=== PATIENT | male | born 1980 | race Caucasian/White ===

== ENCOUNTER 2024-11-07 17:38 | Inpatient (IN) | payer OTHER, SELFPAY ==
[2024-11-07] VITALS (12 sets, daily range): BP systolic 137–163; BP diastolic 88–112; BMI 26.2; BMI 26.3
--- NOTE | 2024-11-07 12:39 | ED.GENMED ---
History of Present Illness
General
Chief Complaint: Withdrawal Symptoms
Source: patient
Exam Limitations: none
Time Seen by Provider: 11/07/24 12:31
Nursing documentation reviewed up to this point in time: agreed with
History of Present Illness
History of Present Illness:
44 male alcoholic stopped drinking on Thursday evening, was drinking every day is unemployed lives with his and children, no other drugs, not taking his blood pressure meds, has been in rehab before unsure if he wants to go today he feels shaky
and nauseous no history of seizures when he withdrawals denies any black or bloody stools
Past History
Past History
ED Past Medical History: HTN and Other (Ischemic colitis, GI bleed)
ED Past Surgical History: Tonsilectomy
Social History
Tobacco: Former smoker
Alcohol: Daily
Drug: None
Personal:
Living: with family
Employment: Employed
Review of Systems
Review of Systems
All Other Systems: Not applicable
EENT: Reports no symptoms
Respiratory: Reports no symptoms
Cardiac: Reports no symptoms
ABD/GI: Reports nausea; Denies abdominal pain or vomiting
: Reports no symptoms
Musculoskeletal: Reports no symptoms
Neurological: Reports dizzy and weakness
Endocrine: Reports no symptoms
Psychiatric: Reports anxiety; Denies depression or suicidal
Phy Exam
Physical Exam
Physical Exam:
Physical Exam
General: Tremulous 44 male
Neck: Lips are dry
Heart: s1/s2 regular rate and rhythm, no murmur. equal radial pulses.
Lungs: no acute respiratory distress. clear bilaterally
Abdomen: Nontender
Neuro: Tremulous, able to do serial additions
Skin: no rash
Psychiatric: cooperative
Extremities: no edema.
Scores
Withdrawal Assessment of Alcohol
Withdrawal Assessment Completed?: Yes
Nausea and Vomiting: Mild nausea with no vomiting
Tactile Disturbances: Mild itching, pins and needles, burning or numbness
Tremor: Moderate, with patient's arms extended
Auditory Disturbances: Very mild harshness or ability to fighten
Paroxysmal Sweats: No sweat visible
Visual Disturbances: Very mild sensitivity
Anxiety: Moderately anxious, or guarded, so anxiety is inferred
Headache, Fullness in Head: Very mild
Agitation: Moderately fidgety and restless
Orientation and clouding of sensorium: Oriented and can do serial additions
Total CIWA Score: 18
Alcohol Withdrawal Medication Recommendation: Equal to MSAS Score 8-11. Lorazepam 1-2mg IV NOW & re-assess q1hr
Course
Orders/Labs/Results
Orders:
Orders
11/07/24 12:23
Electrocardiogram (*1) Urgent
Reason for Study: Tachycardia
11/07/24 12:24
EKG- Treatment ONCE
11/07/24 12:33
Complete Blood Count/With Diff Urgent
Comprehensive Metabolic Panel Urgent
Magnesium Urgent
Comment: ADD
11/07/24 12:35
Add On- LAB Urgent
Tests Added?: magnesium
11/07/24 12:36
diazePAM [Valium Injection] 10 mg IV NOW STA
11/07/24 13:00
0.9% Sodium Chloride 1000 ml [Nss] 1,000 ml Mvi, Adult [Multivitamin] 10 ml Thiamine Injection 100 mg Magnesium Sulfate 2 grams IV 200 mls/hr
Flush (0.9% Sodium Chloride) [Flush (Nss)] See Dose Instructions IV PER PROTOCOL
11/07/24 13:48
Warm Handoff Consult ONCE
Patient agreeable to Warm Hand off: Yes
11/07/24 16:05
diazePAM [Valium Injection] 10 mg IV NOW STA
Abnormal Lab Results
11/07/24
12:33
RBC 4.16 L 10^6/uL
(4.70-6.10)
MCV 96.6 H fL
(80.0-94.0)
MCH 34.6 H pg
(27.0-31.0)
Absolute Lymphs (auto) 0.8 L 10^3/uL
(1.2-3.4)
Absolute Monos (auto) 0.7 H 10^3/uL
(0.1-0.6)
Immature Gran % 0.6 H %
(0-0.5)
Lymphocytes % 15.4 L %
(20.5-51.1)
Monocytes % 14.4 H %
(1.7-9.3)
Sodium 133 L mmol/L
(135-145)
Chloride 95 L mmol/L
(98-107)
Glucose 125 H mg/dl
(70-99)
Magnesium 1.3 L mg/dl
(1.6-2.3)
Total Bilirubin 1.7 H mg/dl
(0.2-1.3)
AST 94 H U/L
(17-59)
ALT 62 H U/L
(0-50)
Albumin 5.3 H g/dl
(3.5-5.0)
11/07/24 12:33
11/07/24 12:33
Vital Signs
Initial and Last Documented VS:
Initial Vital Signs
Temp Pulse Resp Pulse Ox
99.0 F 130 18 99
11/07/24 12:21 11/07/24 12:21 11/07/24 12:21 11/07/24 12:21
Last Documented Vital Signs
Temp Pulse Resp BP Pulse Ox
99.0 F 105 16 147/100 99
11/07/24 12:21 11/07/24 15:30 11/07/24 15:30 11/07/24 15:00 11/07/24 15:55
MDM/Problems Addressed
Differential Diagnosis Includes:
Alcohol withdrawal impending DTs, electrolyte abnormality
MDM/Problems Addressed:
Alcohol withdrawal
Chronic conditions affecting care: HTN
Acute Exacerbation and/or Progression of Chronic Illness: HTN
*Pulse Oximetry
SaO2: 98
Oxygen Mode of Delivery: Room air
Patient hypoxic: no
*EKG
Interpreted by ED Provider?: Yes
Interpretation: abnormal
Comparison EKG: no comparison EKG present
Heart Rate: 118
Rate: tachycardiac
Rhythm: sinus
Ischemia: non-specific ST changes
*Wicker Worker Interpretation
Rate: tachycardiac
Interpretation: abnormal
Heart Rate: 120
Rhythm: sinus
*Critical Care Note
Total Time (30-74mins, 75-104mins- exclusive of procedures): 31
Update Note
Update Note:
1:45 PM vital signs normalized labs noted thiamine folate magnesium infusing patient appears amenable to talking to warm handoff
345, patient stable normal mental status he is cherry talk to his about rehab
4 PM reviewed with nursing patient shaky tachycardic will redose benzos low threshold to admit
ED Attending Note
-
Portions of this chart may have been created with voice recognition software.� Occasional wrong word or��sound alike� substitutions may have occurred due to the inherent limitations of voice recognition software.
Discharge Plan
Departure
Prescriptions:
No Action
pantoprazole 40 MG tablet,delayed release (DR/EC)
40 mg PO BID Qty: 60 0RF
Referrals:
UNKNOWN - PT DOES,NOT KNOW [Family Provider]
Interventions
Interventions:
*Risk Screen - Suicide Last Done: 11/07/24 12:25
*General Assessment Last Done: 11/07/24 12:25
*Neglect/Abuse Screening Last Done: 11/07/24 12:25
*ED COVID-19 Vaccine History Last Done: 11/07/24 12:25
*ED Influenza Vaccine History Last Done: 11/07/24 12:25
ED- Neurological Assessment Last Done: 11/07/24 12:34
ED-Psychological Assessment Last Done: 11/07/24 12:34
Discharge Date and Time
Print Language: NAURUAN
[2024-11-07] MEDS: VALIUM INJECTION 10 MG IV ×2 (12:41→16:25)
[2024-11-07 12:58] LABS: Hematocrit 40.2 % (39.0-52.0); Hemoglobin 14.4 g/dL (13.0-18.0); Mean Corp Hgb Conc. 35.8 g/dL (33.0-37.0); Mean Corpuscular Volume 96.6 fL (80.0-94.0); Nucleated Red Blood Cells % 0 % (-); Red Cell Dist. Width 13.8 % (11.5-14.5)
[2024-11-07 12:59] LABS: ALT (SGPT) 62 U/L (0-50); AST (SGOT) 94 U/L (17-59); Albumin 5.3 g/dl (3.5-5.0); Alkaline Phosphatase 67 U/L (38-126); Blood Urea Nitrogen 9 mg/dl (9-20); Calcium 10.2 mg/dl (8.4-10.2); Carbon Dioxide 26 mmol/L (22-30); Chloride 95 mmol/L (98-107); Estimated Creatinine Clearance 122 ml/min; Glucose 125 mg/dl (70-99); Magnesium 1.3 mg/dl (1.6-2.3); Potassium 3.8 mmol/L (3.5-5.1); Sodium 133 mmol/L (135-145); Total Protein 7.6 g/dl (6.3-8.2); eGFR > 60.00
[2024-11-07] MEDS: MULTIVITAMIN 1015 GRAMS IV (13:05)
[2024-11-07] MEDS: MULTIVITAMIN 1015 MG IV (13:05)
[2024-11-07] MEDS: MULTIVITAMIN 1015 ML IV (13:05)
[2024-11-07 13:20] LABS: Platelet Count 141 10^3/uL (130-400)
--- NOTE | 2024-11-07 16:09 | HPS.HSE ---
Addendum entered and electronically signed by Sony Copeland MD 11/07/24 17:22:
Seen and examined by me independently in collaboration with the nurse practitioner Ulysses.
Past medical history/social history/medication/allergies reviewed.
Lab data and imaging data reviewed.
44-year-old gentleman with a history of prior alcohol abuse and having had inpatient rehab was sober till about 3 months ago when he went back to alcohol. He is currently drinking 1 bottle of vodka every 2 to 3 days. He abruptly quit on Thursday.
He started to experience tremors, shaking, imbalance and anxiety feeling since Thursday evening. Denies having had seizures.
Denies being confused but has been forgetful the last 3 days. Denies having experiencing any agitation.
No prior history of seizures.
Has been feeling nauseous but no abdominal pain or vomiting. No shortness of breath.
He is currently anxious looking with obvious tremors. No diaphoresis noted. Pulse 101 regular sinus tach on the monitor. Blood pressure 153/90 currently. He did receive Valium in the ER.
He is alert and oriented to day, month and the year. No hallucinations.
Abdomen soft and nontender.
Patient with alcohol use disorder going through withdrawal moderate intensity. No evidence of DTs currently.
Blood pressure elevation could be combination of alcohol withdrawal but also not taking his antihypertensives. Known to have hypertension and was taking 2 medications including lisinopril and Norvasc in the past which he stopped.
Admit to telemetry. Start on alcohol withdrawal protocol with benzodiazepines. Hold on phenobarb for now and added if worsening symptoms.
Start on IV hydration. Start on IV thiamine and folic acid. Replete magnesium for hypomagnesemia.
In the past he was on BuSpar and is not sure who prescribed it and also was taking trazodone. Interested to see a psychiatrist.
Consult case management for rehab placement which he is agreeable and is considering outpatient at the current time.
Original Note:
Family Physician
-
Family Physician: NOT KNOW UNKNOWN - PT DOES
Chief Complaint
-
alcohol withdrawal
History of Present Illness
44 male with PMH for alcohol abuse, ischemic colitis, HTn presented to us with alcohol withdrawal. he drinks vodka daily. his last drink was on Thursday as he was getting prepared for an job interview. today he was confused, very shaky, tremors. he
was off balance.he can't even hold a plastic cup due to tremors.denied AGUILAR, dizzy or syncope.denied fever, chills,chest pain, sob. denied abdominal pain,n,v,d. denied dysuria or hematuria.
Patient received 2 doses of Valium, banana bag in the ER. Admitted for further management
Medical History
Past Medical History
Past Medical History: Reports Other
Additional Past Medical History:
Hypertension, ischemic colitis
Past Surgical History: Reports Other
Additional Past Surgical History:
Adenoidectomy, hiatal hernia clipped, bilateral ear tube
Social History
Tobacco: Former Smoker
Alcohol: Daily
Drug: None
Personal:
Living: With Family
Family History
Family History: Not pertinent
Allergies / Home Medications
Allergies reflects when Allergies were last updated in [facility].
Home Medications with original date entered in [facility]
Allergy/Medication List:
Allergies
Allergy/AdvReac Type Severity Reaction Status Date / Time
Penicillins Allergy Tongue Verified 06/16/22 14:29
Swelling
Home Medications
pantoprazole 40 mg tablet,delayed release 40 mg PO BID #60 tabs 04/11/18
Review of Systems
-
Constitutional: Reports No Symptoms
EENT: Reports No Symptoms
Respiratory: Reports No Symptoms
Cardiac: Reports No Symptoms
Abdomen/GI: Reports No Symptoms
: Reports No Symptoms
Musculoskeletal: Reports No Symptoms
Skin: Reports No Symptoms
Neurological: Reports No Symptoms
Endocrine: Reports No Symptoms
Hematologic/Lymphatic: Reports No Symptoms
Psych: Reports No Symptoms
Physical Exam
Vital Signs
Vital Signs
Temp Pulse Resp BP Pulse Ox
99.0 F 105 16 147/100 99
11/07/24 12:21 11/07/24 15:30 11/07/24 15:30 11/07/24 15:00 11/07/24 15:55
Physical Exam
General: Well Developed, Well Nourished and No Apparent Distress
HEENT: NormoCephalic, Moist mucous membranes and Atraumatic
Respiratory: Clear
Cardiac: S1/S2 and Regular Rhythm; No Murmur or Rub
GI: Soft, Non Tender, Non Distended and Normal Bowel Sounds; No Organomegaly
Rectal: Deferred by Provider
Musculoskeletal: No Clubbing, No Cyanosis and No Edema
Skin: No Rash
Neuro: Nonfocal/grossly intact and Tremors
Psych: Calm
Laboratory Results
-
11/07/24 12:33
11/07/24 12:33
Laboratory Results
Total Bilirubin 1.7 mg/dl (0.2-1.3) H 11/07/24 12:33
AST 94 U/L (17-59) H 11/07/24 12:33
ALT 62 U/L (0-50) H 11/07/24 12:33
Alkaline Phosphatase 67 U/L (38-126) 11/07/24 12:33
Data Reviewed
-
Lab Data: Labs Reviewed by me
Impression/Plan
-
# Alcohol withdrawal
-monitor MSAS score
-alcohol protocol initiated
-received Fluids with Vitamins in the ER
-Ativan prn
-psychiatry consulted
# Hypomagnesemia
- Mag 1.3, IV mag
-trend Magnesium level
# Transaminitis secondary to alcohol abuse
- Patient denies any abdominal pain
- Continue to trend LFTs
# Hypertension
- Stop taking medications months ago
- Hydralazine as needed
# DVT prophylaxis
- Lovenox
# CODE STATUS
- full code
--- NOTE | 2024-11-07 21:54 | PTCARENOTE ---
Pt arrived onto floor @2154. Pt AAOx3 and able to ambulate into room w/ assistance. Pt with no complaints of pain or SOB at this time. Pt oriented to room and call villalpando will continue to monitor.
[2024-11-07] MEDS: LOVENOX 40 MG SC (22:45)
[2024-11-07] MEDS: NSS 1000 IV (22:45)
[2024-11-07] MEDS: VALIUM INJECTION 5 MG IV (22:46)
[2024-11-07] MEDS: THIAMINE INJECTION 200 MG IV (23:36)
[2024-11-08 00:52] LABS: Urine Character Clear (Clear)
[2024-11-08 00:57] LABS: Urine Red Blood Cell 0-2 /HPF (0-2); Urine Squamous Cell 0-2 /LPF (Few); Urine White Cell 0-2 /HPF (0-5)
[2024-11-08 01:11] LABS: APTT 32.3 Sec (23.4-35.0); INR 1.02; PT 13.7 Sec (11.4-14.6)
[2024-11-08 01:20] LABS: GGTP 370 U/L (15-73); Magnesium 2.1 mg/dl (1.6-2.3)
[2024-11-08] MEDS: ATIVAN 1 MG PO ×2 (01:23→09:16)
[2024-11-08 03:15] VITALS: BP 132/87
[2024-11-08 07:00] VITALS: BP 128/92
[2024-11-08] MEDS: THIAMINE INJECTION 200 MG IV ×2 (07:21→15:47)
[2024-11-08] MEDS: FOLVITE 1 MG PO (07:21)
[2024-11-08 08:16] LABS: Hematocrit 39.1 % (39.0-52.0); Hemoglobin 14.2 g/dL (13.0-18.0); Mean Corp Hgb Conc. 36.3 g/dL (33.0-37.0); Mean Corpuscular Volume 101.0 fL (80.0-94.0); Platelet Count 126 10^3/uL (130-400); Red Cell Dist. Width 13.3 % (11.5-14.5)
[2024-11-08 08:30] LABS: ALT (SGPT) 49 U/L (0-50); AST (SGOT) 78 U/L (17-59); Albumin 4.7 g/dl (3.5-5.0); Alkaline Phosphatase 63 U/L (38-126); Blood Urea Nitrogen 7 mg/dl (9-20); Calcium 9.1 mg/dl (8.4-10.2); Carbon Dioxide 27 mmol/L (22-30); Chloride 95 mmol/L (98-107); Estimated Creatinine Clearance > 125 ml/min; Glucose 93 mg/dl (70-99); Magnesium 2.2 mg/dl (1.6-2.3); Potassium 3.8 mmol/L (3.5-5.1); Sodium 133 mmol/L (135-145); Total Protein 7.0 g/dl (6.3-8.2); eGFR > 60.00
[2024-11-08 10:30] VITALS: BP 138/91
--- NOTE | 2024-11-08 10:58 | CM ---
Patient seen bedside, initial assessment completed. Patient is a 44 male with PMH for alcohol abuse, ischemic colitis, HTn presented to us with alcohol withdrawal. Currently on ETOH withdrawal protocol.
Patient resides w/ spouse, stepson and daughter in a 2STH, 2 steps to enter from the outside. Patient is independent in all areas. Patient has a CPAP machine but does not use it. No therapy hx reported. Patient stated he was previously at an
inpatient D&A rehab for treatment, however, he met w/ [facility] in the ED. [facility] provided resources for OP services, patient prefers OP than inpatient at this time. Patient stated he is currently unemployed and has the free time to coordinate w/ OP
schedule as he previously did not have flexible time when he was employed.
Address, point of contact and insurance verified
PCP: None at this time------> Patient's PCP retired this year, is due to see a new PCP but does not have an appt scheduled at this time
Pharmacy: [facility]
Psych eval ordered
Update from nurse: Patient no longer w/ trembles or sweating. Given Ativan for minor agitation
Plan: Home w/ OP D&A support
--- NOTE | 2024-11-08 11:05 | W.PN.HOSP.TC ---
Today's Communication/Plan
-
Continue alcohol withdrawal protocol today
DC in a.m. if continued improvement
Assessment / Plan
Assessment / Plan
# Alcohol use disorder with mild to moderate alcohol withdrawal
- No evidence of DT
- Continue with alcohol withdrawal protocol
- Patient clinically improving
- DC further IV fluids
- No indication for phenobarb at this point.
-psychiatry consulted
- Patient looking into outpatient resources.
# Hypomagnesemia
- Repleted
-trend Magnesium level
#Bjvvnlvehnkb-wyvj-zvfsdpsvdu concerning for hypovolemia on admission with withdrawal symptoms. Continue to follow
# Transaminitis suspect secondary to alcohol abuse
- Patient denies any abdominal pain
- Continue to trend LFTs-abdominal normalized with abstinence from alcohol no further workup otherwise needs ultrasound of the liver and hepatitis serology.
# Hypertension
- Stop taking medications months ago
- Hydralazine as needed
- Blood pressure under goal without any antihypertensives. Continue to follow.
# DVT prophylaxis
- Lovenox
# CODE STATUS
- full code
Anticipated Discharge: Within 24 hours
Subjective/Interval History
-
Date of Service: November 08, 2024
Feels improved but still feel tremulous.
No hallucination. Does not feel confused. No agitation noted.
Calm and composed.
Denies any shortness of breath.
No nausea vomiting.
Objective Data
-
Labs:
Laboratory Results
11/08/24 11/08/24
00:53 07:48
WBC 6.2
Hgb 14.2
Hct 39.1
Plt Count 126 L
PT 13.7
INR 1.02
APTT 32.3
Sodium 133 L
Potassium 3.8
Chloride 95 L
Carbon Dioxide 27
BUN 7 L
Creatinine 0.7
Glucose 93
Calcium 9.1
Total Bilirubin 1.5 H
AST 78 H
ALT 49
Alkaline Phosphatase 63
Vital Signs:
Vital Signs
Temp Pulse Resp BP Pulse Ox
98.3 F 97 17 128/92 98
11/08/24 07:00 11/08/24 07:00 11/08/24 07:00 11/08/24 07:00 11/08/24 07:00
I&O
11/07/24 11/08/24 11/09/24
06:59 06:59 06:59
Output Total 600 / 600
Balance -600 / -600
Physical Exam
-
General: Comfortable
Respiratory: Non Labored Respirations; Negative Accessory Resp Muscle Use
Cardiac: Regular Rhythm, S1/S2 and Tachycardic (less so)
GI: Soft and Nontender
Neuro: AO x 3, No Motor Deficits and Tremors (slightly)
Psych: Calm; Negative Confused or Agitated
Data Reviewed
-
Labs: Labs Reviewed by me
[2024-11-08] MEDS: NSS 1000 IV (11:25)
[2024-11-08] MEDS: VALIUM INJECTION 5 MG IV (14:22)
--- NOTE | 2024-11-08 14:58 | CS.PSYCHR ---
Consult Summary - Psychiatry
-
pt seen by me in consultation for alcohol use disorder
44 yo man brought self to ED after developing symptoms of alcohol withdrawal. Has long history of problematic excessive drinking, had been sober until May of this year, drinking has excalated to the point of losing job (in June) and drinking so
much he was uncomfortable witih it. Decided to do 'cold turkey' on 11/05 but by 11/07 very uncomfortable; 911 called by .
Has been seen in [place] ED in past, sent to [facility], successful rehab. Not currently in any treatment, not in AA. Had seen psychiatrist in late teens due to anger; decided not to go back because of quick prescription for
depakote.
Lives in [place] with of 9 years along with her son from prior relationship and their 8 year old daughter together. Often joined by pt's 17 yo son from prior relationship. Pt currently has doubts about 's fidelity, since her ex (father of
's son) moved closer, and has been meeting up with on occasions which has told daughter not to talk about. has her own substance use issues, drinking heavily, family trying to get her to stop as well.
Born and raised in [place], only child, describes parents as 'great' though some issues with mother being over-controlling. Was competitive swimmer throughout school into college (received swimming scholarship) but no more. Had to leave school
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
travel.)
Has had GI bleed x 2 in past, likely related to alcohol.
On exam pt is tremulous, but conversant. Denies any thoughts of suicide, upset that family thinks he is a bum for not working, still not sure is faithful and is considering if marriage can survive (hopes once they are both sober that they will
rekindle something.) No signs of cognitive impairment, no hallucinations/delusion.
Allergic to penicillin, throat closes
Impression: Alcohol use disorder severe, Currenly in withdrawal
Would not be stingy with valium, with some 5 mg standing bid and some 5 mg q 4 prn, would start on standing neurontin 400 mg tid, with slow paer by 100 mg every other day
Would start naltrexone 50 mg daily
Has been see by [facility] has plans for outpatient treatment. If changes mind would be appropriate for inpatient rehab
[2024-11-08 15:33] VITALS: BP 135/85
[2024-11-08] MEDS: NEURONTIN 400 MG PO ×2 (16:56→20:11)
[2024-11-08] MEDS: REVIA 50 MG PO (17:03)
[2024-11-08] MEDS: LOVENOX 40 MG SC (17:03)
[2024-11-08 19:00] VITALS: BP 136/93
[2024-11-08] MEDS: VALIUM INJECTION 2 MG IV (22:38)
[2024-11-08 23:00] VITALS: BP 127/87
[2024-11-09] MEDS: NSS 1000 IV (00:03)
[2024-11-09] MEDS: THIAMINE INJECTION 200 MG IV ×2 (00:03→07:07)
[2024-11-09 03:00] VITALS: BP 125/89
[2024-11-09] MEDS: FOLVITE 1 MG PO (07:07)
[2024-11-09] MEDS: NEURONTIN 400 MG PO ×2 (07:07→17:04)
[2024-11-09] MEDS: REVIA 50 MG PO (07:09)
[2024-11-09 07:41] VITALS: BP 121/84
[2024-11-09 08:16] LABS: Hematocrit 38.8 % (39.0-52.0); Hemoglobin 13.8 g/dL (13.0-18.0); Mean Corp Hgb Conc. 35.6 g/dL (33.0-37.0); Mean Corpuscular Volume 101.6 fL (80.0-94.0); Platelet Count 141 10^3/uL (130-400); Red Cell Dist. Width 13.4 % (11.5-14.5)
[2024-11-09 09:09] LABS: ALT (SGPT) 73 U/L (0-50); AST (SGOT) 125 U/L (17-59); Albumin 4.1 g/dl (3.5-5.0); Alkaline Phosphatase 63 U/L (38-126); Blood Urea Nitrogen 7 mg/dl (9-20); Calcium 9.1 mg/dl (8.4-10.2); Carbon Dioxide 27 mmol/L (22-30); Chloride 103 mmol/L (98-107); Estimated Creatinine Clearance 122 ml/min; Glucose 115 mg/dl (70-99); Potassium 3.9 mmol/L (3.5-5.1); Sodium 137 mmol/L (135-145); Total Protein 6.5 g/dl (6.3-8.2); eGFR > 60.00
--- NOTE | 2024-11-09 09:32 | W.PN.HOSP.TC ---
Today's Communication/Plan
-
DC planning
Assessment / Plan
Assessment / Plan
# Alcohol use disorder with mild to moderate alcohol withdrawal
- No evidence of DT
- Patient clinically improving
- Appreciate psychiatry input-patient started on gabapentin as well as naltrexone.
- Patient also seen by PT care and patient has opted for outpatient rehab.
Since he is clinically improved will discharge patient home on Valium taper for 4 days. Will check with psychiatrist regarding gabapentin taper and plan of naltrexone treatments as outpatient.
# Transaminitis suspect secondary to alcohol abuse
- Patient denies any abdominal pain
- Continue to trend LFTs-abdominal normalized with abstinence from alcohol no further workup otherwise needs ultrasound of the liver and hepatitis serology.
# Hypertension
- Stop taking medications months ago
-- Blood pressure under goal without any antihypertensives. Hold antihypertensives and follow-up with PCP.
# DVT prophylaxis
- Lovenox
# CODE STATUS
- full code
Anticipated Discharge: Today
Subjective/Interval History
-
Date of Service: November 09, 2024
Patient is feeling improved. Less tremulous. No sweating. No nausea vomiting. Tolerating diet.
No hallucinations or confusion. Not noted to be agitated. Has not used IV Valium since this morning.
Denies fever chills.
No shortness of breath.
Objective Data
-
Labs:
Laboratory Results
11/09/24
07:18
WBC 4.8
Hgb 13.8
Hct 38.8 L
Plt Count 141
Sodium 137
Potassium 3.9
Chloride 103
Carbon Dioxide 27
BUN 7 L
Creatinine 0.8
Glucose 115 H
Calcium 9.1
Total Bilirubin 0.8
AST 125 H
ALT 73 H
Alkaline Phosphatase 63
Vital Signs:
Vital Signs
Temp Pulse Resp BP Pulse Ox
98.1 F 88 16 121/84 98
11/09/24 07:41 11/09/24 07:41 11/09/24 07:41 11/09/24 07:41 11/09/24 07:41
I&O
11/08/24 11/09/24 11/10/24
06:59 06:59 06:59
Intake Total 880 / 880
Output Total 600 / 600
Balance 280 / 280
Physical Exam
-
General: Comfortable
Respiratory: Non Labored Respirations; Negative Accessory Resp Muscle Use
Cardiac: Regular Rhythm and S1/S2; Negative Tachycardic
GI: Soft and Nontender
Neuro: AO x 3 and Tremors (Much improved tremors)
Psych: Calm; Negative Confused or Agitated
Data Reviewed
-
Labs: Labs Reviewed by me
[2024-11-09] MEDS: VALIUM INJECTION 2 MG IV (10:39)
[2024-11-09 11:30] VITALS: BP 97/56
--- NOTE | 2024-11-09 12:05 | CM ---
CM reviewed chart, patient seen bedside.
Patient reports [facility] has provided patient with outpatient resources, patient will follow up once d/c.
Patient confirms will provide transportation home.
Patient denies needs from CM at this time, will continue to follow for all d/c planning needs.
Plan; home with outpatient resources [facility]
[2024-11-09 15:20] VITALS: BP 141/97
--- NOTE | 2024-11-09 15:25 | W.DCSUMMARY ---
Discharge Summary
Discharge Data
Date of Admission: 11/07/24
Date of Discharge: 11/09/24
-
Pending Results: No
Hospital Course
Primary diagnosis:
Alcohol use disorder with alcohol withdrawal syndrome
Secondary diagnosis:
History of hypertension
Hospital course:
Patient with history of alcohol use disorder and prior inpatient alcohol rehab relapsed into alcohol use and started to use heavily since summer. He wanted to stop alcohol so went cold turkey and within 48 hours presented with alcohol withdrawal
symptoms of tremors, anxiety, nausea. Noted to have elevated blood pressure and heart rate in going with increased sympathetic activity. He did not have any hallucinations or any confusion or agitation to suggest DTs.
He was admitted to hospital for treatment of alcohol withdrawal symptoms. Was treated with Valium, IV fluids, folate and thiamine. He had much improvement in his symptoms. He was seen by psychiatrist as well they added gabapentin and also
naltrexone. He wanted to do outpatient alcohol rehab program.[facility] were involved and will follow as OP.
Today he was better and requiring less benzodiazepines. He was discharged home on taper of Valium and taper of gabapentin. Naltrexone could be used but he needs close follow-up which is not set up yet. Could be considered as an outpatient.
Consultants on board:
Psychiatry - Nash Carbajal
Discharge Plan
-
Patient Disposition: Home (Routine Discharge)
Discharge Diagnosis/Procedures: Alcohol use disorder with alcohol withdrawal; no DT
Diet: Regular
Activity: As tolerated
Driving Restrictions: As prior to admission
Bathing Restrictions: None
Referrals:
UNKNOWN - PT DOES,NOT KNOW [Family Provider] - in one week
Referral Note: Follow up with Your PCP in a week
Prescriptions:
New
folic acid 1 mg Tablet
1 mg PO DAILY Qty: 30 0RF
thiamine mononitrate (vit B1) 100 mg Tablet
100 mg PO BID Qty: 60 0RF
diazepam [Valium] 2 mg tablet
2 mg PO DIRECTED Qty: 10 0RF
Rx Instructions:
Thrice a day *1 day
Twice a day *1 day
once a day * 2 days and stop
You can take an extra pill in a day if needed
gabapentin 400 mg capsule
400 mg PO DIRECTED Qty: 7 0RF
Rx Instructions:
400mg three times a day *1 day
400mg twice a day * 1 day
400mg once a day* 2 days and stop
Held
lisinopril 10 mg Tablet
10 mg PO DAILY
Hold Instructions: Resume on 11/16/24. Hold till you see your PCP. Check your BP on regular basis and if SBP>140 you can resume it.
Discontinued
trazodone 50 mg Tablet
50 mg PO HSPRN PRN (Reason: sleep)
amlodipine [Norvasc] 5 mg Tablet
5 mg PO DAILY
Discharge Orders:
Discharge Patient (As Directed); Ordered 11/09/24
Ordered By: Sony Copeland
Discharge Date and Time
Print Language: BRITISH [place] ISLANDER
--- NOTE | 2024-11-09 22:00 | W.PN.UPDATE ---
Update Note
Progress Note Update
pt seen for assessment. Less tremulous, feels he can manage at home. Will be continued on valium and gabapentin tapers. Pt continues to decline inpatient rehab. Discussed use of naltrexone, will seek to get this from PCP or outpatient alcohol use
disorder treatment provider. No thoughts of suicide, still hopes to reconcile with
== END 2024-11-09 18:29 | disposition home or self-care (01) | DRG 897 ==
LOC: 4 WEST ACU 17:38
PROVIDERS: Emergency Medicine; Registered Nurse; ADMITTING PHYSICIAN Internal Medicine; CONSULT PHYSICIAN Psychiatry & Neurology Psychiatry; EMERGENCY PHYSICIAN Emergency Medicine
DX: F10.239 Alcohol dependence with withdrawal, unspecified (principal); E87.1 Hypo-osmolality and hyponatremia; I10 Essential (primary) hypertension; F41.9 Anxiety disorder, unspecified; E83.42 Hypomagnesemia; Z79.899 Other long term (current) drug therapy; Z87.891 Personal history of nicotine dependence
CPT/HCPCS: 80053; 80306; 80307; 81003; 81015; 82010; 82077; 82977; 83735; 84100; 85025; 85027; 85610; 85730; 93005; 96374; 96376; 99291